=== PATIENT | female | born 1950 | race Caucasian/White ===

== ENCOUNTER 2025-05-14 17:06 | Emergency (ER) | payer MEDICARE, SELFPAY ==
[2025-05-14] VITALS (19 sets, daily range): BP systolic 108–160; BP diastolic 70–94; PULSE 67–140; RESP 16–36; TEMP 36.2; O2SAT 94–98; BMI 23.9
--- NOTE | 2025-05-14 17:38 | DI.RAD.S_ITS ---
PROCEDURE: XR CHEST 1V INDICATIONS: Chest Pain TECHNIQUE: One view of the chest was acquired. COMPARISON: None. FINDINGS: Surgical changes and devices: None. Lungs and pleura: Lungs are clear. No pleural effusions or pneumothorax. Mediastinum: Mediastinal contours appear normal. Heart size is normal. Bones and chest wall: No suspicious bony lesions. Overlying soft tissues appear unremarkable. IMPRESSION: No acute cardiopulmonary abnormality is seen. Dictated by: Norman Adams M.D. on 05/14/2025 at 17:13 Approved by: Norman Adams M.D. on 05/14/2025 at 17:14
--- NOTE | 2025-05-14 17:38 | EKG_ITS ---
[facility] [id number] [place] [address] Test Date: 2025-05-14 Pat Name: Estrella Granados Department: Room: Gender: Female Vp Strategic Planning: : 1950 Requested By: Order Number: [id number] Reading MD: Earle Leary MD Measurements Intervals [place] Rate: 116 P: NH: QRS: 13 QRSD: 82 T: 54 QT: 298 QTc: 414 Interpretive Statements Atrial fibrillation with rapid ventricular response Nonspecific ST and T wave abnormality NO PRIOR TRACING Electronically Signed On 05-16-2025 7:48:16 PDT by Earle Leary MD
[2025-05-14 17:47] LABS: INR 1.0 (0.9-1.3); Prothrombin Time 11.6 SECONDS (9.4-12.5)
[2025-05-14 17:48] LABS: Add Manual Diff / Slide Review NO; Hematocrit 44.7 % (36-46); Hemoglobin 15.6 g/dL (12.0-16.0); Lymphocytes Absolute Auto 2500 /uL (1100-4500); Mean Corpuscular HGB Conc 34.8 % (30-36); Mean Corpuscular Hemoglobin 32.3 PG (26-34); Mean Corpuscular Volume 92.8 fL (80-100); Platelet Count 174 X10^3/uL (150-400)
[2025-05-14 17:50] LABS: PTT Partial Thromboplastin Tim 29 SECONDS (25.1-36.5)
[2025-05-14 17:52] LABS: Alanine Aminotransferase 22 IU/L (<35); Albumin 4.4 g/dL (3.5-5.0); Albumin Globulin Ratio 1.4 (1.0-2.8); Alkaline Phosphatase 69 U/L (38-126); Blood Urea Nitrogen 19 mg/dL (7-17); Calcium 10.0 mg/dL (8.4-10.2); Carbon Dioxide 23 mmol/L (22-32); Chloride 107 mmol/L (98-107); Creatine Kinase 21 U/L (30-135); Estimated Glomerular Filt Rate > 60 mL/min (>60); Globulin 3.1 g/dL (1.7-4.1); Glucose 101 mg/dL (70-99); HEMOLYSIS 18 (0-50); Lipase 185 U/L (23-300); Magnesium 2.2 mg/dL (1.6-2.3); Potassium 4.1 mmol/L (3.4-5.1); Sodium 137 mmol/L (137-145); Total Protein 7.5 g/dL (6.3-8.2)
[2025-05-14 18:03] LABS: NT-proBNP (BNP-Adult 18+) 1670 pg/mL (<450); Troponin I 0.030 ng/mL (0.01-0.034)
--- NOTE | 2025-05-14 18:30 | ED.ARRPALP ---
HPI - Arrhythmia/Palpitations General Chief Complaint: Arrhythmia/Palpitations Stated Complaint: irregular heart beat Time Seen by Provider: 05/14/25 18:04 Source: patient and family Mode of arrival: Family Vehicle History of Present Illness HPI narrative: 74-year-old female with a history of paroxysmal atrial fibrillation felt a little bit of palpitations and noticed her heart rate steadily increasing since this a.m. prompting her to come in today. The patient does have a pending ablation procedure in [place] in approximately 10 days. The patient has been anticoagulated with Eliquis for the past 2+ years. The patient does have a history of multiple cardioversions in the past that have worked for her. Currently the patient denies any chest pain shortness of breath or other symptoms. Airway assessed prior to start of procedure? [Y/N] Procedural Sedation Time of Procedure: 20:00 Consent Signed: [Y/ ASA Class: 1 Mallampati Airway Classification: I Time Out Performed: Y Indication: atrial fibrillation with rvr Preparation: yes Bedside and IV Secured: [Y Fentanyl Dose (mcg): [] IV Propofol Dose (mg): 40 ED Sedation Level: minimal Patient Tolerated Procedure: yes Complications: none Related Data Home Medications ?Medication ?Instructions ?Recorded ?Confirmed diltiazem HCl 120 mg 120 mg PO DAILY 05/14/25 05/14/25 capsule,extended release 24 hr (Cartia XT) diltiazem HCl 30 mg tablet 30 mg PO 3XD PRN Afib 05/14/25 05/14/25 levothyroxine 100 mcg tablet 100 mcg PO DAILY 05/14/25 05/14/25 propranolol 10 mg tablet 10 mg PO DAILY 05/14/25 05/14/25 Allergies Allergy/AdvReac Type Severity Reaction Status Date / Time No Known Drug Allergies Allergy Verified 05/14/25 17:38 Review of Systems Review of Systems ROS Unobtainable: All systems reviewed & are unremarkable except as noted in HPI and below Patient History Social History Smoking Status: Never smoker Smoking Status: Never smoker Exam Initial Vital Signs Initial Vital Signs: Vital Signs Pulse Rate 120 H 05/14/25 17:20 Pulse Oximetry 98 05/14/25 17:20 Course Orders Ordered: ED Orders 05/14/25 17:38 XR chest 1V Stat EKG-12 Lead Stat 05/14/25 20:08 EKG-12 Lead Stat 05/14/25 20:09 EKG-12 Lead Stat Discontinued Medications Aspirin (Aspirin 81 Mg Chew Tab) 324 mg PO NOW ONE Stop: 05/14/25 17:39 Last Admin: 05/14/25 20:00 Dose: Not Given Documented By: TATA Propofol (Propofol 200 Mg/20 Ml Vial) 60 mg 1 mg/kg (60 mg) IV NOW ONE Stop: 05/14/25 18:55 Last Admin: 05/14/25 20:00 Dose: 40 mg Documented By: TATA Reevaluation(s) Reevaluation #1: Upon re-evaluation after cardioversion, patient is completely asymptomatic and continues to stay in sinus rhythm. Vital Signs Vital signs: Vital Signs - 8 hr 05/14/25 19:00 05/14/25 19:04 05/14/25 19:04 Pulse Rate 129 H 126 H Respiratory Rate 24 18 Blood Pressure 108/78 Pulse Oximetry 97 96 05/14/25 19:30 05/14/25 19:30 05/14/25 19:45 Pulse Rate 134 H 140 H Respiratory Rate 26 H 16 Blood Pressure 118/83 Pulse Oximetry 96 05/14/25 19:56 05/14/25 19:56 05/14/25 20:00 Pulse Rate 140 H Respiratory Rate 32 H Blood Pressure 160/94 H 148/79 H Pulse Oximetry 96 05/14/25 20:00 05/14/25 20:05 05/14/25 20:05 Pulse Rate 121 H 131 H Respiratory Rate 20 19 Blood Pressure 110/78 Pulse Oximetry 98 96 05/14/25 20:10 05/14/25 20:11 05/14/25 20:11 Pulse Rate 72 72 Respiratory Rate 22 36 H Blood Pressure 134/75 Pulse Oximetry 97 97 05/14/25 20:20 05/14/25 20:20 05/14/25 20:30 Pulse Rate 72 Respiratory Rate 24 Blood Pressure 125/83 126/85 Pulse Oximetry 96 05/14/25 20:30 05/14/25 20:40 05/14/25 20:40 Pulse Rate 68 67 Respiratory Rate 23 20 Blood Pressure 125/70 Pulse Oximetry 97 97 05/14/25 20:50 05/14/25 20:50 Pulse Rate 76 Respiratory Rate 20 Blood Pressure 125/77 Pulse Oximetry MDM - Arrhythmia/Palpitations Lab Data 05/14/25 17:25 05/14/25 17:25 Labs: Lab Results 05/14/25 Range/Units 17:25 WBC 7.7 (4.5-11.0) X10^3/uL RBC 4.82 (4.0-5.2) X10^6/uL Hgb 15.6 (12.0-16.0) g/dL Hct 44.7 (36-46) % MCV 92.8 (80-100) fL MCH 32.3 (26-34) PG MCHC 34.8 (30-36) % RDW 13.0 (11.6-14.8) % Plt Count 174 (150-400) X10^3/uL Neut % (Auto) 57.3 (50-75) % Lymph % (Auto) 32.0 (25-40) % [place] % (Auto) 8.7 (3-14) % Eos % (Auto) 1.3 L (2-4) % Baso % (Auto) 0.7 (0-2) % Neut # (Auto) 4400 (5161-1142) /uL Lymph # (Auto) 2500 (3125-6889) /uL [place] # (Auto) 700 (0-900) /uL Eos # (Auto) 100 (0-450) /uL Baso # (Auto) 100 (0-100) /uL PT 11.6 (9.4-12.5) SECONDS INR 1.0 (0.9-1.3) APTT 29 (25.1-36.5) SECONDS Sodium 137 (137-145) mmol/L Potassium 4.1 (3.4-5.1) mmol/L Chloride 107 (98-107) mmol/L Carbon Dioxide 23 (22-32) mmol/L BUN 19 H (7-17) mg/dL Creatinine 0.73 (0.52-1.04) mg/dL Estimated GFR > 60 (>60) mL/min BUN/Creatinine Ratio 26.0 H (6-22) Glucose 101 H (70-99) mg/dL Calcium 10.0 (8.4-10.2) mg/dL Magnesium 2.2 (1.6-2.3) mg/dL Total Bilirubin 0.3 (0.2-1.3) mg/dL AST 31 (14-36) IU/L ALT 22 (<35) IU/L Alkaline Phosphatase 69 (38-126) U/L Total Creatine Kinase 21 L (30-135) U/L Troponin I 0.030 (0.01-0.034) ng/mL NT-Pro-B Natriuret Pep 1670 H (<450) pg/mL Total Protein 7.5 (6.3-8.2) g/dL Albumin 4.4 (3.5-5.0) g/dL Globulin 3.1 (1.7-4.1) g/dL Albumin/Globulin Ratio 1.4 (1.0-2.8) Lipase 185 (23-300) U/L Point of Care Testing Test Results Negative Imaging Data Chest x-ray: Radiologist's Impresson: No acute cardiopulmonary abnormality is seen. ECG Data Interpretation: Original EKG showed an atrial fibrillation with RVR. Status post cardioversion, patient's EKG showed a sinus rhythm with sinus arrhythmia. At 71 beats per minute. Normal axis normal TN intervals no STT wave changes. No previous EKG found. MDM Narrative Medical decision making narrative: 74-year-old female comes in with atrial fibrillation in RVR. Patient does feel some palpitations and has had electrocardioversion in the past that were successful. Another electrical cardioversion was done for the patient here in the ED which was successful with no consequences. Documentation as per above. Patient advised to follow up with Cardiology as planned. Discharge Plan Departure Patient Disposition: Home Clinical Impression: Atrial fibrillation with rapid ventricular response Instructions: DI for Atrial Fibrillation Activity Restrictions/Additional Instructions: Continue on same medication regimen for now and follow up with switch cleaner as planned. Prescriptions: No Action levothyroxine 100 mcg tablet 100 mcg PO DAILY propranolol 10 mg tablet 10 mg PO DAILY diltiazem HCl [Cartia XT] 120 mg capsule,extended release 24hr 120 mg PO DAILY diltiazem HCl 30 mg tablet 30 mg PO 3XD PRN (Reason: Afib) Stand Alone Forms: Patient Portal/API
--- NOTE | 2025-05-14 20:08 | EKG_ITS ---
[facility] [id number] [address] Test Date: 2025-05-14 Pat Name: Estrella Granados Department: Room: Gender: Female Telephone Switchboard Operator: EDUARDO : 1950 Requested By: Order Number: [id number] Reading MD: Earle Leary MD Measurements Intervals [place] Rate: 71 P: 9 NH: 164 QRS: -1 QRSD: 80 T: 21 QT: 408 QTc: 443 Interpretive Statements Sinus rhythm with marked sinus arrhythmia Electronically Signed On 05-16-2025 7:48:31 PDT by Earle Leary MD
== END 2025-05-14 21:05 | disposition home or self-care (01) ==
PROVIDERS: Student in an Organized Health Care Education/Training Program; Emergency Provider Family Medicine
DX: I48.20 Chronic atrial fibrillation, unspecified (principal); Z79.01 Long term (current) use of anticoagulants
CPT/HCPCS: 36415; 71045; 80053; 82550; 83690; 83735; 83880; 84484; 85025; 85610; 85730; 92960; 93005; 93010; 99152; 99285; J2704